=== PATIENT | female | born 1980 | race Caucasian/White ===

== ENCOUNTER 2018-12-21 11:36 | Emergency (ER) | payer OTHER ==
[2018-12-21 11:51] VITALS: BP 138/95
[2018-12-21] MEDS ORDERED: Meclizine TAB* 12.5 MG PO ONE (11:59)
--- NOTE | 2018-12-21 11:59 | UC ---
Dizzy HPI HPI Summary: 38 yo female presents with dizziness. She tells me that this morning around 0900 she was at work and developed sudden onset dizziness like the room was spinning. Her symptoms did not improve - prompting her visit to . She tells me that over the last week or so she has had increasing sinus pain/pressure/ congestion and troubles with allergies, but states this resolved 2 days ago. Over the last 2-3 days she has also developed a dry cough and sore throat. She has been taking halls cough drops OTC with little relief. She does mention that about 2 weeks ago she hit her head on a rock in her garden when she fell chasing her chickens at home, but has had no headaches, dizziness, vision changes, n/v since that time (other than dizziness today). Denies fever, chills , SOB, chest pain/palpitations, abdominal pain, n/v, dysuria. - History Of Current Complaint Chief Complaint: UCDizziness Stated Complaint: DIZZY Time Seen by Provider: 12/21/18 11:59 Hx Obtained From: Patient Hx Last Menstrual Period: 4 weeks ago Onset/Duration: Sudden Onset Severity Currently: None Pain Intensity: 0 Character: Room Spinning - Allergies/Home Medications Allergies/Adverse Reactions: Allergies Allergy/AdvReac Type Severity Reaction Status Date / Time dog dander Allergy Rash Verified 12/21/18 11:49 grass pollen Allergy Unknown Verified 12/21/18 11:49 Reaction Details Home Medications: Home Medications Ascorbic Acid [Vitamin C] 1 tab PO DAILY 12/21/18 [History Confirmed 12/21/18] Cholecalciferol (Vitamin D3) [Vitamin D3] 1 tab PO DAILY 12/21/18 [History Confirmed 12/21/18] Menthol [[place]] 1 tab PO ONCE PRN 12/21/18 [History Confirmed 12/21/18] PMH/Surg Hx/FS Hx/Imm Hx - Additional Past Medical History Additional PMH: Personality disorder PTSD Depression - Surgical History Surgical History: None - Family History Known Family History: Positive: Other - Depression - Social History Occupation: Employed Full-time Lives: With Family Alcohol Use: Rare Substance Use Type: None Smoking Status (MU): Never Smoked Tobacco - Immunization History Most Recent Influenza Vaccination: Patient was unable to remember. Most Recent Pneumonia Vaccination: n/a Review of Systems All Other Systems Reviewed And Are Negative: Yes Constitutional: Positive: Negative Skin: Positive: Negative Eyes: Positive: Negative ENT: Positive: Sore Throat, Nasal Discharge, Sinus Congestion, Sinus Pain/ Tenderness Respiratory: Positive: Cough Cardiovascular: Positive: Negative Gastrointestinal: Positive: Negative Neurovascular: Positive: Negative Neurological: Positive: Other - Dizzy Psychological: Positive: Negative Physical Exam - Summary Physical Exam Summary: GENERAL: NAD. WDWN. No pain distress. SKIN: No rashes, sores, ulcers, masses, lesions. HEENT: Head: AT/NC. Eyes: PERRLA. EOM intact. Conjunctiva clear without inflammation or discharge. Ears: Hearing grossly normal. TMs intact, no bulging, erythema, or edema. Nose: Nasal mucosa pink and moist. NTTP maxillary and frontal sinus. Throat: Posterior oropharynx with mild erythema. No exudates or tonsillar enlargement. Uvula midline. NECK: Supple. Nontender. FROM CHEST: Mild wheezing throughout. No accessory muscle use. Breathing comfortably and in no distress. CV: RRR. Without m/r/g. Pulses intact. Brisk cap refill. ABDOMEN: Soft. NTTP. Bowel sounds present MSK: FROM in B/L UEs and LEs with symmetric strength. NEURO: A&Ox3. 3 word recall, remote, recent memory, ability to follow 2-step directions, and attention intact. CN: II: Peripheral taylor intact. Vision normal. III, IV, : EOMI. No nystagmus. PERRLA. V: Sensations intact and symmetric. Opens mouth and clenches teeth. VII: No facial asymmetry. Forehead wrinkles. Grins, shuts eyes, frowns, puffs cheeks. VIII: Hearing intact to finger rub. IX, X: Swallows and coughs. Uvula midline. XI: Shrugs shoulders. Turns head against resistance. XII: No tongue deviation. [id number] are intact. Gait with normal base. Romberg: maintains balance, no pronator drift. Normal speech. No facial drooping. PSYCH: Flat affect Triage Information Reviewed: Yes Vital Signs: Initial Vital Signs Temp 98.2 F 12/21/18 11:41 Pulse 56 12/21/18 11:41 Resp 18 12/21/18 11:41 BP 138/95 12/21/18 11:41 Pulse Ox 100 12/21/18 11:41 Laboratory Tests 12/21/18 12:11 Group A Strep Rapid Negative Vital Signs Reviewed: Yes Dizzy Course/Dx - Course Course Of Treatment: CXR: IMPRESSION: NO ACTIVE CARDIOPULMONARY DISEASE. Discussed giving her meclizine and a breathing treatment in the clinic, but pt declined as she is not familiar with either of these medications and is unsure how her body will react. I discussed the side effects and MOA of these medications with the pt, but she continued to decline. We also discussed obtaining a head CT, but she declined and states she would like labwork to check for infection. I discussed with her that her symptoms seem to be more related to vertigo secondary to allergies/eustachian tube dysfunction, a viral illness, or BPPV. She seemed hesitant about these diagnosis and continued to request labwork. I asked Dr. Castillo to evaluate the pt as her flat affect, refusal of diagnostic testing, and refusal of treatment in the clinic make it difficult to appropriately evaluate her condition. Dr. Castillo stated that he agreed with the above and favors a viral illness. Pt continued to decline imaging and treatment in the clinic. Will draw for CBC, CMP, and TSH. Strongly encouraged to go to the ED if her symptoms continue or worsen - otherwise suggested that she f/u with her PCP tomorrow for a recheck. - Differential Dx/Diagnosis Provider Diagnosis: Vertigo, Cough Discharge - Sign-Out/Discharge Documenting (check all that apply): Patient Departure All imaging exams completed and their final reports reviewed: Yes - Discharge Plan Condition: Stable Disposition: HOME Patient Education Materials: Vertigo (DC), Viral Syndrome (ED) Referrals: Dipti Menjivar [Primary Care Provider] - 1 Day Additional Instructions: If you develop a fever, shortness of breath, chest pain, new or worsening symptoms - please call your PCP or go to the ED immediately. Your blood pressure was slightly elevated at todays visit. Please see your primary provider within 4 weeks for recheck and re-evaluation. We have drawn for blood work to further evaluate your symptoms. I recommend you schedule an appointment with your primary doctor for tomorrow for a recheck and lab results. - Billing Disposition and Condition Condition: STABLE Disposition: Home
[2018-12-21 19:38] LABS: ABS Eosinophils 0.2 10^3/ul (0-0.6); ABS Lymphocytes 0.9 10^3/ul (1.0-4.8); ABS Monocytes 0.5 10^3/ul (0-0.8); ABS Neutrophils 4.7 10^3/ul (1.5-7.7); Eosinophil % 3.1 %; Hematocrit 44 % (35-47); Hemoglobin 14.6 g/dL (12.0-16.0); Lymphocyte % 14.4 %; Mean Corpuscular HGB Conc 33 g/dL (31-36); Mean Corpuscular Hemoglobin 31 pg (27-31); Mean Corpuscular Volume 93 fL (80-97); Mean Platelet Volume 10.2 fL (7.4-10.4); Nucleated Red Blood Cells % 0.1; Platelet Count 152 10^3/uL (150-450); Red Blood Count 4.73 10^6 /uL (3.70-4.87); Red Cell Distribution Width 14 % (10-15); White Blood Count 6.3 10^3/uL (3.5-10.8)
[2018-12-21 20:03] LABS: TSH (Thyroid Stimulating Horm) 0.94 mcIU/mL (0.34-5.60)
[2018-12-21 20:26] LABS: Albumin 3.8 g/dL (3.2-5.2); Potassium 4.1 mmol/L (3.5-5.0); Total Bilirubin 0.6 mg/dL (0.2-1.0)
[2018-12-21 20:32] LABS: Albumin/Globulin Ratio 1.7 (1-3); BUN/Creatinine Ratio 13.1 (8-20); EGFR African American 90.9 (>60); EGFR Non-African American 75.1 (>60); Globulin 2.3 g/dL (2-4); Total Protein 6.1 g/dL (6.4-8.9)
== END 2018-12-21 13:47 | disposition home or self-care (01) ==
LOC: UCEAST 11:36
DX: R42 Dizziness and giddiness (principal); R05 Cough
CPT/HCPCS: 36415; 71046; 80053; 84443; 85025; 87651; 99211; A9270-GY; G0463

== ENCOUNTER 2019-08-13 16:50 | Emergency (ER) | payer OTHER ==
--- OUTSIDE RECORDS SUMMARY | 2019-08-13 17:11 | XMS REPORT ---
:1980 Author Organization [facility] Care Team Providers Name Role Phone CORI VELA Primary Care Physician Unavailable Allergies, Adverse Reactions, Alerts Allergy Code CodeSystem Reaction Severity Criticality Status Start Substance Date Moderate Medications Medication Medication Medication Start Stop Route Dose Status Fill Code CodeSystem Date Date Instructions RxNorm Problems Problem Name Code CodeSystem Alternate Alternate Start End Status Narrative Code CodeSystem Date Date Post-traumat [id number] SNOMED-CT Active ic stress - disorder, unspecified Relevant diagnostic tests/laboratory data Narrative No Information Procedures Procedure Code CodeSystem Target Date of Status Service Device Device Device Name Site Procedure Delivery Code Name UID Location SNOMED-CT () 2019-01-[address], [id number] SNOMED-CT () 2019-01-[address], [id number] Psychother [id number] SNOMED-CT () 2019-03-23 completed Mental apy, 45 4 Health- minutes José Miguel with [address], [id number] [id number] Psychother [id number] SNOMED-CT () 2019-03-27 completed Mental apy, 45 4 Health- minutes Mobile with [address], [id number] [id number] Psychother [id number] SNOMED-CT () 2019-04-03 completed Mental apy, 45 4 Health- minutes José Miguel with [address], [id number] Psychother [id number] SNOMED-CT () 2019-04-12 completed Mental apy, 45 4 Health- minutes Mobile with [address], [id number] Psychother [id number] SNOMED-CT () 2019-04-16 completed Mental apy, 45 4 Health- minutes José Miguel with [facility] patient [address] [place] [address], [id number] [id number] Psychother [id number] SNOMED-CT () 2019-04-26 completed Mental apy, 45 4 Health- minutes Mobile with [facility] patient [address] [place] [address], [id number] [id number] Psychother [id number] SNOMED-CT () 2019-05-08 completed Mental apy, 45 4 Health- minutes José Miguel with [facility] patient [address] [place] [address], [id number] [id number] SNOMED-CT () 2019-05-15 completed Mental Health- Mobile [address], [id number] [id number] Psychother [id number] SNOMED-CT () 2019-05-22 completed Mental apy, 45 4 Health- minutes José Miguel with [facility] patient [address] [place] [address], [id number] [id number] Psychother [id number] SNOMED-CT () 2019 completed Mental apy, 45 4 Health- minutes Mobile with [facility] patient [address] [place] [address], [id number] [id number] Psychother [id number] SNOMED-CT () 2019-06-19 completed Mental apy, 45 4 Health- minutes Mobile with [facility] patient [address] [place] [address], [id number] [phone] Psychother [id number] SNOMED-CT () 2019-07-02 completed Mental apy, 45 4 Health- minutes Mobile with [facility] patient [address] [place] [address], [id number] [id number] Psychother [id number] SNOMED-CT () 2019-07-24 completed Mental apy, 45 4 Health- minutes José Miguel with [facility] patient [address] [place] [address], [id number] [id number] Encounters/Encounter Diagnoses Encounter Name Encounter Diagnosis Diagnosis Diagnosis Date of Service Code Code Name CodeSystem Diagnosis Delivery Location [facility] [id number] Post-traumati SNOMED-CT 2019-07-31 Behavioral Individual 30 c stress Health min disorder, Clinic , , unspecified , Vital Signs No Information Social History Element Description Description Start End Code CodeSystem AdditionalInfo Date Date SexAssignedAtBirth Female 1979-07 F AdministrativeGender 07-31 Hospital Discharge Instructions Reason For Referral Medical Equipment FDA Assessments
[2019-08-13 17:23] LABS: ABS Eosinophils 0.1 10^3/ul (0-0.6); ABS Lymphocytes 1.9 10^3/ul (1.0-4.8); ABS Monocytes 0.3 10^3/ul (0-0.8); ABS Neutrophils 3.7 10^3/ul (1.5-7.7); Eosinophil % 2.4 %; Hematocrit 43 % (35-47); Hemoglobin 14.5 g/dL (12.0-16.0); Lymphocyte % 30.9 %; Mean Corpuscular HGB Conc 34 g/dL (31-36); Mean Corpuscular Hemoglobin 32 pg (27-31); Mean Corpuscular Volume 93 fL (80-97); Mean Platelet Volume 9.8 fL (7.4-10.4); Nucleated Red Blood Cells % 0.1; Platelet Count 154 10^3/uL (150-450); Red Cell Distribution Width 14 % (10-15); White Blood Count 6.1 10^3/uL (3.5-10.8)
[2019-08-13 17:49] LABS: Albumin/Globulin Ratio 1.7 (1-3); BUN/Creatinine Ratio 18.8 (8-20); EGFR African American 95.6 (>60); Globulin 2.3 g/dL (2-4); Potassium 4.2 mmol/L (3.5-5.0); Total Bilirubin 0.5 mg/dL (0.2-1.0); Total Protein 6.3 g/dL (6.4-8.9)
--- NOTE | 2019-08-13 18:29 | ED ---
Abdominal Pain/Female - HPI Summary HPI Summary: Patient complains of sudden onset "lump" to the left of her belly button starting on Tuesday. Patient states she was leaning over to lift something up when she felt a sharp pain and then felt the mass afterwards. Mass appeared to disappear later with resolution of pain. States intermittent pain in same area since. Denies any other pain, injury or symptoms. No history of same. Medical history is none. Abdominal surgical history is none. - History of Current Complaint Chief Complaint: EDAbdPain Stated Complaint: POSS HERNIA WELL NOW SENT HER PER PT Time Seen by Provider: 08/13/19 18:14 Hx Obtained From: Patient Hx Last Menstrual Period: 4 weeks ago Onset/Duration: Sudden Onset, Lasting Days Timing: Minutes Severity Initially: Severe Severity Currently: Mild Pain Intensity: 1 Pain Scale Used: 0-10 Numeric Location: Umbilical Radiates: No Character: Sharp Aggravating Factor(s): Movement Alleviating Factor(s): Nothing Associated Signs and Symptoms: Positive: Negative Allergies/Adverse Reactions: Allergies Allergy/AdvReac Type Severity Reaction Status Date / Time dog dander Allergy Rash Verified 08/13/19 16:58 doxycycline Allergy Joint Pain Verified 08/13/19 16:59 grass pollen Allergy Unknown Verified 08/13/19 16:58 Reaction Details PMH/Surg Hx/FS Hx/Imm Hx Endocrine/Hematology History: Denies: Hx Anticoagulant Therapy Cardiovascular History: Reports: Other Cardiovascular Problems/Disorders - reports hx of bradycardia and fainting (can't remember last time) Respiratory History: Denies: Hx Asthma History: Denies: Hx Dialysis Musculoskeletal History: Reports: Other Musculoskeletal History - c/o lower back pain s/p long ride from [place] in 2 1/2 days Sensory History: Reports: Hx Contacts or Glasses - reports that she is near sighted Denies: Hx Hearing Aid Opthamlomology History: Reports: Hx Contacts or Glasses - reports that she is near sighted EENT History: Denies: Hx Deafness Neurological History: Denies: Hx Dementia Psychiatric History: Reports: Hx Anxiety, Hx Depression, Hx Post Traumatic Stress Disorder, Hx Community Mental Health Tx Denies: Hx Eating Disorder, Hx Suicide Attempt, Hx of Violent Episodes Against Others - Cancer History Hx Chemotherapy: No Hx Radiation Therapy: No Infectious Disease History: No Infectious Disease History: Reports: History Other Infectious Disease - PID Denies: Traveled Outside the [place] in Last 30 Days - Family History Known Family History: Positive: Other - Depression - Social History Alcohol Use: Rare Substance Use Type: Reports: None Smoking Status (MU): Never Smoked Tobacco Review of Systems Constitutional: Negative Eyes: Negative ENT: Negative Cardiovascular: Negative Respiratory: Negative Positive: Abdominal Pain Genitourinary: Negative Musculoskeletal: Negative Skin: Negative Neurological: Negative Psychological: Normal All Other Systems Reviewed And Are Negative: Yes Physical Exam - Summary Physical Exam Summary: Mild tenderness to palpation just left of umbilicus. No mass, erythema, induration noted. Triage Information Reviewed: Yes Vital Signs On Initial Exam: Initial Vitals Temp Pulse Resp BP Pulse Ox 97.5 F 54 19 141/80 100 08/13/19 16:53 08/13/19 16:53 08/13/19 16:53 08/13/19 16:53 08/13/19 16:53 Vital Signs Reviewed: Yes Appearance: Positive: Well-Appearing Skin: Positive: Warm Head/Face: Positive: Normal Head/Face Inspection Eyes: Positive: Normal Neck: Positive: Supple Respiratory/Lung Sounds: Positive: Clear to Auscultation Cardiovascular: Positive: Normal Abdomen Description: Positive: Other: Musculoskeletal: Positive: Normal Neurological: Positive: Normal Psychiatric: Positive: Normal AVPU Assessment: Alert - Martin Coma Scale Best Eye Response: 4 - Spontaneous Best Motor Response: 6 - Obeys Commands Best Verbal Response: 5 - Oriented Coma Scale Total: 15 Procedures - Sedation Patient Received Moderate/Deep Sedation with Procedure: No Diagnostics - Vital Signs Vital Signs Temp Pulse Resp BP Pulse Ox 08/13/19 17:58 97.7 F 57 16 124/88 99 08/13/19 16:53 97.5 F 54 19 141/80 100 - Laboratory Lab Results: Lab Results 08/13/19 08/13/19 Range/Units 17:16 17:16 WBC 6.1 (3.5-10.8) 10^3/uL RBC 4.60 (3.70-4.87) 10^6 /uL Hgb 14.5 (12.0-16.0) g/dL Hct 43 (35-47) % MCV 93 (80-97) fL MCH 32 H (27-31) pg MCHC 34 (31-36) g/dL RDW 14 (10-15) % Plt Count 154 (150-450) 10^3/uL MPV 9.8 (7.4-10.4) fL Neut % (Auto) 60.9 % Lymph % (Auto) 30.9 % Pickett % (Auto) 5.2 % Eos % (Auto) 2.4 % Baso % (Auto) 0.6 % Absolute Neuts (auto) 3.7 (1.5-7.7) 10^3/ul Absolute Lymphs (auto) 1.9 (1.0-4.8) 10^3/ul Absolute Monos (auto) 0.3 (0-0.8) 10^3/ul Absolute Eos (auto) 0.1 (0-0.6) 10^3/ul Absolute Basos (auto) 0.0 (0-0.2) 10^3/ul Absolute Nucleated RBC 0.0 10^3/ul Nucleated RBC % 0.1 Sodium 139 (135-145) mmol/L Potassium 4.2 (3.5-5.0) mmol/L Chloride 106 (101-111) mmol/L Carbon Dioxide 29 (22-32) mmol/L Anion Gap 4 (2-11) mmol/L BUN 15 (6-24) mg/dL Creatinine 0.80 (0.51-0.95) mg/dL Est GFR ( Amer) 95.6 (>60) Est GFR (Non-Af Amer) 79.0 (>60) BUN/Creatinine Ratio 18.8 (8-20) Glucose 86 (70-100) mg/dL Calcium 9.0 (8.6-10.3) mg/dL Total Bilirubin 0.50 (0.2-1.0) mg/dL AST 23 (13-39) U/L ALT 15 (7-52) U/L Alkaline Phosphatase 50 (34-104) U/L Total Protein 6.3 L (6.4-8.9) g/dL Albumin 4.0 (3.2-5.2) g/dL Globulin 2.3 (2-4) g/dL Albumin/Globulin Ratio 1.7 (1-3) Result Diagrams: 08/13/19 17:16 08/13/19 17:16 Lab Statement: Any lab studies that have been ordered have been reviewed, and results considered in the medical decision making process. Abdominal Pain Fem Course/Dx - Course Course Of Treatment: Patient complains of sudden onset "lump" to the left of her belly button starting on Tuesday. Patient states she was leaning over to lift something up when she felt a sharp pain and then felt the mass afterwards. Mass appeared to disappear later with resolution of pain. States intermittent pain in same area since. Denies any other pain, injury or symptoms. No history of same. Medical history is none. Abdominal surgical history is none. Vital signs within normal limits. Labs unremarkable. CAT scan abdomen and pelvis positive for 1 cm umbilical fat-containing hernia. - Diagnoses Provider Diagnoses: Hernia of abdominal wall Discharge ED - Sign-Out/Discharge Documenting (check all that apply): Patient Departure - Discharge Plan Condition: Stable Disposition: HOME Patient Education Materials: Umbilical Hernia (ED) Referrals: Dipti Menjivar [Primary Care Provider] - Neo Mitchell MD [Medical Doctor] - Additional Instructions: Follow-up with general surgeon Dr. alva for further evaluation of possible hernia. Return to the ED for any new or worsening symptoms. - Billing Disposition and Condition Condition: STABLE Disposition: Home - Attestation Statements Provider Attestation: I have seen and examied the patient and agree w DIANA documentation as above, briefly 39 y/o F p/w L sided abd "bump", concern for hernia. CT ordered. Tish Thao MD
[2019-08-13] MEDS ORDERED: Iohexol 300* (CONTRAST) 10 ML SDV IV ONE (18:42)
[2019-08-13 20:43] VITALS: BP 139/87
== END 2019-08-13 20:42 | disposition home or self-care (01) ==
LOC: ED 16:50
DX: K43.9 Ventral hernia without obstruction or gangrene (principal); K76.0 Fatty (change of) liver, not elsewhere classified; Z88.1 Allergy status to other antibiotic agents; Z91.09 Other allergy status, other than to drugs and biological substances; N83.01 Follicular cyst of right ovary; K59.00 Constipation, unspecified
CPT/HCPCS: 36415; 74177; 80053; 85025; 99282; Q9967

== ENCOUNTER 2024-06-27 15:49 | Observation (INO) ==
[2024-06-27 16:24] LABS: ABS Basophils 0.1 10^3/uL (0.0-0.1); ABS Eosinophils 0.1 10^3/uL (0.0-0.5); ABS Lymphocytes 2.3 10^3/uL (1.0-4.8); ABS Monocytes 0.5 10^3/uL (0.0-0.9); ABS Neutrophils 5.1 10^3/uL (1.5-7.6); ABS Nucleated RBC 0.01 10^3/ul; Eosinophil % 1.2 %; Hematocrit 44.1 % (35-45); Hemoglobin 15.1 g/dL (11.5-14.3); Lymphocyte % 27.8 %; Mean Corpuscular Hemoglobin 31.7 pg (27-33); Mean Corpuscular Hgb Conc 34.2 g/dL (31-36); Mean Corpuscular Volume 92.6 fL (80-97); Mean Platelet Volume 9.5 fL (7.5-11.2); Nucleated Red Blood Cells % 0.1 %/100WBC (0.0-0.8); Platelet Count 197 10^3/uL (150-450); Red Blood Count 4.76 10^6/uL (3.63-4.92); White Blood Count 8.1 10^3/uL (3.8-11.8)
[2024-06-27 16:49] LABS: High Sens Troponin Baseline 7 pg/mL (<15)
[2024-06-27 16:51] LABS: ALT 21 U/L (7-52); AST 24 U/L (13-39); Albumin 4.2 g/dL (3.5-5.7); Albumin/Globulin Ratio 1.7 (1-3); Alkaline Phosphatase 71 U/L (35-149); Anion Gap 5 mmol/L (2-16); Blood Urea Nitrogen 21 mg/dL (6-24); CO2 Carbon Dioxide 31 mmol/L (22-32); Calcium 9.1 mg/dL (8.6-10.3); Chloride 104 mmol/L (101-111); Creatinine, Serum 0.93 mg/dL (0.51-0.95); Globulin 2.5 g/dL (2-4); Glucose 72 mg/dL (70-100); Potassium 3.9 mmol/L (3.5-5.0); Sodium 140 mmol/L (135-145); Total Bilirubin 0.4 mg/dL (0.2-1.0); Total Protein 6.7 g/dL (6.4-8.9); eGFR CKD-EPI 76.8 (>60)
[2024-06-27 17:08] LABS: HCG Pregnancy < 0.60 mIU/mL
[2024-06-27] MEDS: Iohexol 350 (CONTRAST) 500 ML MDV IV ONE (17:20)
[2024-06-27 17:54] LABS: High Sensitivity Troponin 1 Hr 5 pg/mL (<15)
[2024-06-27] MEDS ORDERED: Sulfur Hexaflouride MICROSPHR 25 MG VIAL IV PRN (20:01)
[2024-06-27 20:25] LABS: Cholesterol 224 mg/dL; HDL Cholesterol 70.4 mg/dL; LDL Cholesterol 122 mg/dL; Triglycerides 160 mg/dL
[2024-06-27 21:20] LABS: Urine Appearance Clear; Urine Bilirubin Negative (Negative); Urine Blood Negative (Negative); Urine Color Light-Yellow; Urine Glucose Negative (Negative); Urine Ketones Negative (Negative); Urine Nitrite Negative (Negative); Urine Protein Negative (Negative); Urine Specific Gravity >1.050 (1.002-1.030); Urine Urobilinogen Negative (Negative); Urine pH 6.5 (5.0-8.0)
[2024-06-27] MEDS: Enoxaparin 40 MG/0.4 ML SYR SUBCUT SCH (21:50)
[2024-06-28 10:21] VITALS: BP 130/80
== END 2024-06-28 12:49 | disposition home or self-care (01) ==
LOC: ED 15:49 → EDHOLD 15:49 → MEDTELE 21:28
PROVIDERS: ADMIT Internal Medicine; ATTEND Internal Medicine